=== PATIENT | female | born 1980 | race Caucasian/White ===

== ENCOUNTER 2016-11-04 19:04 | Emergency (ER) | payer OTHER ==
[~2016-11-04] VITALS: Ht 170.2 cm; Wt 68.9 kg
[~2016-11-04 19:04] MED LIST: AMITRIPTYLINE H50 MG PO; BOTOX100 UNITS IJ; CLARITIN10 MG PO; CLEOCIN150 MG PO; CLEOCIN300 MG PO; COLACE100 MG PO; FLONASE16 G1 BOTH NARES; IMITREX50 MG PO; KLONOPIN0.5 M1 PO; MUCUS RELIEF600 M1 PO; NAPROSYN500 MG PO; NAPROXEN500 MG PO; PERCOCET 5/31 TABLET PO; PRENATE ENHANC1 EACH PO; PROGESTERONE50 MG/ML IM; ROBITUSSIN NIG118 ML PO; TESSALON PERLE100 MG PO; TORADOL10 MG PO; VENTOLIN HFA18 GM IH; VICODIN 5-3001 EACH PO; VICODIN,LORT1 TABLET PO; ZOFRAN4 MG PO
[2016-11-04 20:03] LABS: HEMATOCRIT 40.2 % (36.0-46.0); MCH 29.7 PG (29.0-34.0); MCHC 34.6 G/DL (30.0-36.0); MCV 85.9 FL (83-99); MEAN PLAT.VOLUME 10.6 uM^3 (9.5-12.4); PLATELET COUNT 228 K/uL (156-360); RBC DIS.WIDTH-CV 13.6 % (11.8-14.6); RED BLOOD COUNT 4.68 M/uL (3.80-5.20); WHITE BLOOD COUNT 11.7 K/uL (4.1-10.2)
[2016-11-04 20:12] LABS: CHLORIDE 107 mEq/L (99-109); POTASSIUM 3.7 mEq/L (3.7-5.4); SODIUM 140 mEq/L (136-147)
[2016-11-04 20:14] LABS: GLUCOSE 77 mg/dL (70-99)
[2016-11-04 20:15] LABS: ANION GAP 7 MEQ/L (2-14)
[2016-11-04 20:18] LABS: GFR ESTIMATE (CALCULATED) > 59 mL/min/
[2016-11-04 20:19] LABS: UREA NITROGEN (BUN) 10 mg/dL (9-23)
[2016-11-04 20:57] LABS: QUANTITATIVE HCG < 4.0 MIU/ML
[2016-11-04 21:03] LABS: ADD MIUA? NO; BILIRUBIN NEGATIVE; BLOOD NEGATIVE; COLOR YELLOW ((YELLOW)); GLUCOSE (STRIP) NEGATIVE; KETONES NEGATIVE; LEUKOCYTES NEGATIVE; NITRITE NEGATIVE; PH, URINE 7.5 (5-8); PROTEIN (STRIP) NEGATIVE; SPECIFIC GRAVITY 1.024 (1.000-1.030); UCUL ADDED? NO
[2016-11-04] MEDS ORDERED: NAPROXEN500 MG PO (21:46)
[2016-11-04 21:58] VITALS: BP 118/95
== END 2016-11-04 21:58 | disposition home or self-care (01) ==
LOC: RME 19:04 → EME 19:04 → RME 21:58
PROVIDERS: Physician Assistant
DX: M54.5 Low back pain (principal); K21.9 Gastro-esophageal reflux disease without esophagitis; G89.29 Other chronic pain; F17.200 Nicotine dependence, unspecified, uncomplicated
CPT/HCPCS: 74176; 80048; 81003; 84702; 85027; 99281; 99283

== ENCOUNTER 2016-11-26 16:22 | Emergency (ER) | payer OTHER ==
[~2016-11-26] VITALS: Ht 170.2 cm; Wt 70.5 kg
[2016-11-26 16:58] LABS: ADD MIUA? YES; BILIRUBIN NEGATIVE; BLOOD SMALL; COLOR YELLOW ((YELLOW)); GLUCOSE (STRIP) NEGATIVE; KETONES NEGATIVE; LEUKOCYTES NEGATIVE; NITRITE NEGATIVE; PROTEIN (STRIP) NEGATIVE; SPECIFIC GRAVITY 1.008 (1.000-1.030); UROBILINOGEN 0.2 MG/DL (0.2-1.0)
[2016-11-26 17:03] LABS: BACTERIA RARE /HPF; EPITHELIAL CELLS RARE /HPF; MUCUS NONE SEEN /LPF; RED BLOOD CELLS 0-5 /HPF (0-5); UCUL ADDED? NO; WHITE BLOOD CELLS 0-5 /HPF (0-5)
[2016-11-26 17:05] LABS: HEMATOCRIT 40.4 % (36.0-46.0); MCH 29.5 PG (29.0-34.0); MCHC 34.2 G/DL (30.0-36.0); MCV 86.3 FL (83-99); MEAN PLAT.VOLUME 10.3 uM^3 (9.5-12.4); PLATELET COUNT 241 K/uL (156-360); RBC DIS.WIDTH-CV 13.7 % (11.8-14.6); RBC DIS.WIDTH-SD 42.3 % (39-53); RED BLOOD COUNT 4.68 M/uL (3.80-5.20); WHITE BLOOD COUNT 11.4 K/uL (4.1-10.2)
[2016-11-26 17:17] LABS: CHLORIDE 110 mEq/L (99-109); POTASSIUM 3.9 mEq/L (3.7-5.4); SODIUM 140 mEq/L (136-147)
[2016-11-26 17:19] LABS: GLUCOSE 86 mg/dL (70-99)
[2016-11-26] MEDS ORDERED: OXYCODONE-APAP1 EACH PO (17:19)
[2016-11-26 17:20] LABS: ANION GAP 8 MEQ/L (2-14)
[2016-11-26] MEDS ORDERED: AMITRIPTYLINE H25 MG PO (17:20)
[2016-11-26 17:21] LABS: TOTAL BILIRUBIN 0.4 mg/dL (0.0-1.0)
[2016-11-26 17:23] LABS: ALKALINE PHOSPHATASE 62 IU/L (3-129); GFR ESTIMATE (CALCULATED) > 59 mL/min/
[2016-11-26 17:24] LABS: UREA NITROGEN (BUN) 10 mg/dL (9-23)
[2016-11-26 17:34] LABS: QUANTITATIVE HCG < 4.0 MIU/ML
[2016-11-26 21:30] VITALS: BP 117/76
== END 2016-11-26 22:07 | disposition home or self-care (01) ==
LOC: EME 16:22
DX: N83.202 Unspecified ovarian cyst, left side (principal); R11.0 Nausea; G89.29 Other chronic pain; Z79.891 Long term (current) use of opiate analgesic; F17.200 Nicotine dependence, unspecified, uncomplicated
CPT/HCPCS: 76856; 80053; 81003; 84702; 85027; 99281; 99285; J2270

== ENCOUNTER 2017-01-12 12:26 | Emergency (ER) | payer OTHER ==
[~2017-01-12] VITALS: Ht 170.2 cm; Wt 68.9 kg
[~2017-01-12 12:26] MED LIST changes: +AMITRIPTYLINE H25 MG PO; +OXYCODONE-APAP1 EACH PO
[2017-01-12 16:29] LABS: HEMATOCRIT 46.1 % (36.0-46.0); MCH 28.8 PG (29.0-34.0); MCV 87.3 FL (83-99); MEAN PLAT.VOLUME 10.7 uM^3 (9.5-12.4); PLATELET COUNT 320 K/uL (156-360); RBC DIS.WIDTH-CV 13.6 % (11.8-14.6); RBC DIS.WIDTH-SD 43.8 % (39-53); RED BLOOD COUNT 5.28 M/uL (3.80-5.20); WHITE BLOOD COUNT 10.8 K/uL (4.1-10.2)
[2017-01-12 16:48] LABS: CHLORIDE 107 mEq/L (99-109); POTASSIUM 3.6 mEq/L (3.7-5.4); SODIUM 140 mEq/L (136-147)
[2017-01-12 16:50] LABS: GLUCOSE 95 mg/dL (70-99)
[2017-01-12 16:51] LABS: ANION GAP 9 MEQ/L (2-14)
[2017-01-12 16:53] LABS: GFR ESTIMATE (CALCULATED) > 59 mL/min/
[2017-01-12 16:54] LABS: UREA NITROGEN (BUN) 10 mg/dL (9-23)
[2017-01-12 17:01] LABS: QUANTITATIVE HCG < 4.0 MIU/ML
[2017-01-12 18:42] VITALS: BP 117/60
== END 2017-01-12 18:42 | disposition home or self-care (01) ==
LOC: EME 12:26 → RME 12:26
PROVIDERS: Physician Assistant
DX: R20.8 Other disturbances of skin sensation (principal); M79.602 Pain in left arm; T38.0X5A Adverse effect of glucocorticoids and synthetic analogues, initial encounter; R05 Cough; G89.29 Other chronic pain; Z79.891 Long term (current) use of opiate analgesic; F17.200 Nicotine dependence, unspecified, uncomplicated
CPT/HCPCS: 72126; 80048; 84702; 85027; 99281; 99285; J1200; J1885; J3010; J7030

== ENCOUNTER 2017-03-22 23:26 | Emergency (ER) | payer OTHER ==
[~2017-03-22] VITALS: Ht 162.6 cm; Wt 66.0 kg
[2017-03-23] MEDS ORDERED: VALIUM5 MG PO (02:04)
[2017-03-23 02:25] VITALS: BP 132/80
== END 2017-03-23 02:26 | disposition home or self-care (01) ==
LOC: EME 23:26
DX: G89.29 Other chronic pain (principal); M54.16 Radiculopathy, lumbar region; F17.200 Nicotine dependence, unspecified, uncomplicated; Z91.040 Latex allergy status; Z88.1 Allergy status to other antibiotic agents; Z88.0 Allergy status to penicillin; Z88.8 Allergy status to other drugs, medicaments and biological substances
CPT/HCPCS: 99281; 99284; J2270

== ENCOUNTER 2017-07-16 11:37 | Emergency (ER) | payer OTHER ==
[~2017-07-16] VITALS: Ht 170.2 cm; Wt 61.6 kg
[~2017-07-16 11:37] MED LIST changes: +VALIUM5 MG PO
[2017-07-16 12:10] LABS: MCH 28.9 PG (29.0-34.0); MCHC 33.9 G/DL (30.0-36.0); MCV 85.3 FL (83-99); MEAN PLAT.VOLUME 10.3 uM^3 (9.5-12.4); PLATELET COUNT 243 K/uL (156-360); RBC DIS.WIDTH-CV 13.5 % (11.8-14.6); RBC DIS.WIDTH-SD 42.1 % (39-53); RED BLOOD COUNT 5.16 M/uL (3.80-5.20); WHITE BLOOD COUNT 8.3 K/uL (4.1-10.2)
[2017-07-16 12:21] LABS: CHLORIDE 108 mEq/L (99-109); POTASSIUM 3.9 mEq/L (3.7-5.4); SODIUM 138 mEq/L (136-147)
[2017-07-16 12:23] LABS: GLUCOSE 113 mg/dL (70-99)
[2017-07-16 12:25] LABS: ANION GAP 9 MEQ/L (2-14); TOTAL BILIRUBIN 0.4 mg/dL (0.0-1.0)
[2017-07-16 12:27] LABS: ALKALINE PHOSPHATASE 74 IU/L (3-129); GFR ESTIMATE (CALCULATED) > 59 mL/min/
[2017-07-16 12:28] LABS: UREA NITROGEN (BUN) 6 mg/dL (9-23)
[2017-07-16 12:31] LABS: ADD MIUA? YES; BILIRUBIN NEGATIVE; BLOOD SMALL; COLOR YELLOW ((YELLOW)); GLUCOSE (STRIP) NEGATIVE; KETONES NEGATIVE; LEUKOCYTES NEGATIVE; NITRITE NEGATIVE; PROTEIN (STRIP) NEGATIVE; SPECIFIC GRAVITY 1.011 (1.000-1.030); UROBILINOGEN 0.2 MG/DL (0.2-1.0)
[2017-07-16 12:36] LABS: QUANTITATIVE HCG < 4.0 MIU/ML
[2017-07-16 12:42] LABS: BACTERIA RARE /HPF; EPITHELIAL CELLS RARE /HPF; MUCUS TRACE /LPF; RED BLOOD CELLS 0-5 /HPF (0-5); UCUL ADDED? NO; WHITE BLOOD CELLS 0-5 /HPF (0-5)
[2017-07-16 13:10] LABS: LIPASE 14 U/L (1.0-51.0)
[2017-07-16] MEDS ORDERED: ZOFRAN4 MG PO (13:45)
[2017-07-16] MEDS ORDERED: PERCOCET 5/31 TABLET PO (13:45)
[2017-07-16 14:35] VITALS: BP 102/88
== END 2017-07-16 14:40 | disposition home or self-care (01) ==
LOC: EME 11:37
DX: K29.00 Acute gastritis without bleeding (principal); G89.29 Other chronic pain; Z79.891 Long term (current) use of opiate analgesic; K21.9 Gastro-esophageal reflux disease without esophagitis; F41.9 Anxiety disorder, unspecified; F17.200 Nicotine dependence, unspecified, uncomplicated; Z88.0 Allergy status to penicillin
CPT/HCPCS: 80053; 81003; 83690; 84702; 85027; 99281; 99284

== ENCOUNTER 2017-08-20 00:02 | Emergency (ER) | payer OTHER ==
[~2017-08-20] VITALS: Ht 170.2 cm; Wt 61.9 kg
[2017-08-20 05:17] VITALS: BP 122/73
== END 2017-08-20 05:18 | disposition home or self-care (01) ==
LOC: EME 00:02
DX: G43.909 Migraine, unspecified, not intractable, without status migrainosus (principal); F17.200 Nicotine dependence, unspecified, uncomplicated
CPT/HCPCS: 99281; 99284; J0780; J1200; J1885; J7030

== ENCOUNTER 2017-12-23 01:19 | Emergency (ER) | payer OTHER ==
[~2017-12-23] VITALS: Ht 170.2 cm; Wt 63.3 kg
[2017-12-23 01:34] VITALS: BP 108/84
== END 2017-12-23 03:00 | disposition left against medical advice (07) ==
LOC: EME 01:19
DX: M54.5 Low back pain (principal); Z53.21 Procedure and treatment not carried out due to patient leaving prior to being seen by health care provider

== ENCOUNTER 2018-01-13 07:42 | Emergency (ER) | payer OTHER ==
[~2018-01-13] VITALS: Ht 170.2 cm; Wt 62.7 kg
[2018-01-13] MEDS ORDERED: PERCOCET 5/31 TABLET PO (08:52)
[2018-01-13] MEDS ORDERED: FLEXERIL10 MG PO (08:53)
[2018-01-13 09:14] VITALS: BP 132/84
== END 2018-01-13 09:29 | disposition home or self-care (01) ==
LOC: EME 07:42
PROC: 0CQ6XZZ Repair Lower Gingiva, External Approach (ICD-10-PCS; principal; 2018-01-13)
DX: S01.512A Laceration without foreign body of oral cavity, initial encounter (principal); S16.1XXA Strain of muscle, fascia and tendon at neck level, initial encounter; V40.1XXA Car passenger injured in collision with pedestrian or animal in nontraffic accident, initial encounter; K21.9 Gastro-esophageal reflux disease without esophagitis; F17.200 Nicotine dependence, unspecified, uncomplicated; Z88.0 Allergy status to penicillin; Z91.040 Latex allergy status; Z88.8 Allergy status to other drugs, medicaments and biological substances; F41.9 Anxiety disorder, unspecified
CPT/HCPCS: 99281; 99285

== ENCOUNTER 2018-01-14 23:44 | Emergency (ER) | payer OTHER ==
[~2018-01-14] VITALS: Ht 170.2 cm; Wt 65.2 kg
[~2018-01-14 23:44] MED LIST changes: +FLEXERIL10 MG PO
[2018-01-15] MEDS ORDERED: LIDOCAINE20 MG/1 M5 PO (00:13)
[2018-01-15] MEDS ORDERED: CLINDAMYCIN HC300 MG PO (00:13)
[2018-01-15 00:48] VITALS: BP 113/89
== END 2018-01-15 00:48 | disposition home or self-care (01) ==
LOC: EME 23:44
DX: S01.512A Laceration without foreign body of oral cavity, initial encounter (principal); V89.2XXA Person injured in unspecified motor-vehicle accident, traffic, initial encounter; Y92.410 Unspecified street and highway as the place of occurrence of the external cause; F17.200 Nicotine dependence, unspecified, uncomplicated; Z88.0 Allergy status to penicillin; Z91.040 Latex allergy status; Z88.1 Allergy status to other antibiotic agents; Z88.8 Allergy status to other drugs, medicaments and biological substances
CPT/HCPCS: 99281; 99283

== ENCOUNTER 2018-03-31 04:56 | Emergency (ER) | payer OTHER ==
[~2018-03-31] VITALS: Ht 170.2 cm; Wt 62.0 kg
[~2018-03-31 04:56] MED LIST changes: +CLINDAMYCIN HC300 MG PO; +LIDOCAINE20 MG/1 M5 PO
[2018-03-31] MEDS ORDERED: FLEXERIL10 MG PO (07:44)
[2018-03-31 08:02] VITALS: BP 125/84
== END 2018-03-31 08:03 | disposition home or self-care (01) ==
LOC: EME 04:56
DX: M54.5 Low back pain (principal); M79.604 Pain in right leg; G89.29 Other chronic pain; Z79.891 Long term (current) use of opiate analgesic; F17.200 Nicotine dependence, unspecified, uncomplicated
CPT/HCPCS: 99281; 99283